=== PATIENT | female | born 1955 | race Caucasian/White ===

== ENCOUNTER 2019-02-13 10:33 | Emergency (ER) | payer OTHER ==
[~2019-02-13] VITALS: Ht 160 cm; Wt 72.6 kg
[~2019-02-13 10:33] MED LIST: NAPROSYN500 MG PO; NORCO 5-325 TA1 EACH PO; TYLENOL P.M. E1 EAC3
[2019-02-13 11:02] LABS: ABSOLUTE NEUTROPHILS 11.5 thou/uL (1.4-8.2); BASOPHILS 0.3 % (0.0-2.0); EOSINOPHILS 0.9 % (0.0-3.0); HEMATOCRIT 45.2 % (37.0-47.0); HEMOGLOBIN 15.5 gm/dL (12.0-15.0); MCH 30.1 pg (26.0-34.0); MCHC 34.3 g/dL (28.0-37.0); MCV 87.8 fL (80.0-100.0); MONOCYTES 5.5 % (1.0-8.0); PLATELET COUNT 267 thou/uL (150-400); POLYS 86.3 % (36.0-66.0); RBC 5.15 mil/uL (4.20-5.00); RDW 13.3 % (10.5-14.5); WBC 13.3 thou/uL (4.0-11.0)
[2019-02-13 11:10] LABS: ANION GAP 11 mmol/L (7-16); BUN 11 mg/dL (7-18); CALCIUM 10.2 mg/dL (8.5-10.1); CHLORIDE 98 mmol/L (98-107); CO2 28 mmol/L (21-32); CREATININE 0.8 mg/dL (0.6-1.0); GLUCOSE 137 mg/dL (74-106); POTASSIUM 4.2 mmol/L (3.5-5.1); SODIUM 137 mmol/L (136-145)
[2019-02-13 11:12] LABS: URINE BILIRUBIN 2+ (Negative); URINE BLOOD 1+ (Negative); URINE CLARITY CLEAR; URINE COLOR YELLOW; URINE GLUCOSE-RANDOM* NEGATIVE (Negative); URINE KETONES NEGATIVE (Negative); URINE LEUKOCYTES-REFLEX TRACE (Negative); URINE NITRITE-REFLEX NEGATIVE (Negative); URINE PROTEIN (DIPSTICK) 1+ (Negative); URINE SPECIFIC GRAVITY 1.025 (1.005-1.035)
[2019-02-13 11:19] LABS: ICTOTEST (BILI CONFIRMATORY) Positive (Negative)
[2019-02-13 11:20] LABS: ALBUMIN 3.5 g/dL (3.4-5.0); SGOT 67 U/L (15-37); SGPT 82 U/L (30-65); TOTAL BILIRUBIN 1.4 mg/dL (<0.1-1.0); TOTAL PROTEIN 8.5 g/dL (6.4-8.2); TROPONIN-I <0.06 ng/mL (<0.06)
[2019-02-13 11:36] LABS: CASTS None Seen /LPF (None Seen); MUCUS 4-6 Moderate strn/LPF (None Seen); SQUAMOUS 4-10 Moderate /LPF (0-3)
[2019-02-13 11:37] LABS: BACTERIA-REFLEX 1-9 Few /HPF (None Seen); CRYSTALS None Seen /LPF (None Seen); URINE RBC None Seen /HPF (0-2); URINE WBC-REFLEX 0-5 Rare /HPF (0-5)
[2019-02-13] MEDS ORDERED: VENTOLIN HFA 1818 GM INH (13:00)
[2019-02-13] MEDS ORDERED: REGLAN 5 MG TAB5 MG PO (13:00)
[2019-02-13] MEDS ORDERED: ALBUTEROL2.5 MG/3 M INH (13:00)
[2019-02-13 16:02] VITALS: BP 153/68
--- NOTE | 2019-02-14 09:40 | EKG ---
[address] [address] ELECTROCARDIOGRAM REPORT Name: JENNIFER PANDYA [id number] ������������������ Admission: 02/13/19 ������������������ Attend Phys: Discharge: 02/13/19 ������������������ Date of : 59 Report #: [id number] ����������������������������������������������������������������� [id number] THIS REPORT FOR: //name// [facility] ED Test Date: 2019-02-13 Test Time: 11:05:26 Pat Name: JENNIFER PANDYA Department: Room: Gender: F [place] Facilitator: : 1955 Requested By: Wang Bullard Order Number: [id number] MD: Valentín Castillo Measurements Intervals [place] Rate: 102 P: 83 HI: 175 QRS: 71 QRSD: 90 T: 67 QT: 337 QTc: 439 Interpretive Statements Sinus tachycardia Otherwise normal tracing No previous ECG available for comparison Electronically Signed On 02-14-2019 9:40:05 CDT by Valentín Castillo [email or web address] ��������������������������������������������� <ELECTRONICALLY SIGNED> ���������������������������������������� By: Valentín Castillo MD, [facility] ��������������������������������������������� 02/14/19 0940 1105 1105 Valentín Castillo MD, FACC /EPI
== END 2019-02-13 16:03 | disposition home or self-care (01) ==
LOC: ER 10:33
PROVIDERS: Emergency Medicine
DX: R51 Headache (principal); J44.9 Chronic obstructive pulmonary disease, unspecified; F17.210 Nicotine dependence, cigarettes, uncomplicated; Z88.0 Allergy status to penicillin; Z90.710 Acquired absence of both cervix and uterus